=== PATIENT | male | born 1970 | race Caucasian/White ===

== ENCOUNTER 2017-12-17 17:11 | Emergency (ER) | payer MEDICAID | END 2017-12-17 18:50 | disposition home or self-care (01) | LOC: FTE 17:11 | DX: R52 Pain, unspecified (principal); Z04.1 Encounter for examination and observation following transport accident | CPT/HCPCS: 99282 ==

== ENCOUNTER 2018-09-04 17:17 | Emergency (ER) | payer SELFPAY, MEDICAID ==
[2018-09-04] MEDS: IBUPROFEN 600 MG TAB PO (19:48)
== END 2018-09-04 21:10 | disposition home or self-care (01) ==
LOC: FTE 17:17
DX: S49.91XA Unspecified injury of right shoulder and upper arm, initial encounter (principal); W01.198A Fall on same level from slipping, tripping and stumbling with subsequent striking against other object, initial encounter; Y92.9 Unspecified place or not applicable
CPT/HCPCS: 73030; 73030-RT; 99283-25